=== PATIENT | female | born 1990 | race Caucasian/White ===

== ENCOUNTER 2018-08-28 07:37 | Day surgery (SDC) | payer MEDICAID ==
[~2018-08-28] VITALS: Ht 162.6 cm; Wt 104.6 kg
[2018-08-28] VITALS (11 sets, daily range): BP systolic 112–150; BP diastolic 70–106
[2018-08-28] MEDS ORDERED: LISI10TA4 PO (08:05)
[2018-08-28] MEDS ORDERED: METO-395 PO (08:05)
[2018-08-28] MEDS ORDERED: HYDR25TA4 PO (08:05)
[2018-08-28] MEDS ORDERED: ASPI81TA52 PO (08:05)
[2018-08-28] MEDS ORDERED: diphenhydrAMINE 25mg capsule PO PRN (08:10)
[2018-08-28] MEDS ORDERED: sod bicarbonate 150mEq in D5W 1,150 ML IV ONE (08:10)
[2018-08-28] MEDS ORDERED: normal saline 1000ml 1,000 ML IV SCH (08:10)
[2018-08-28 09:00] LABS: BASOPHILS % (AUTO) 0.3 % (0-1); EOSINOPHILS # (AUTO) 0.1 X10'3 (0-0.9); EOSINOPHILS % (AUTO) 1.3 % (0-6); HEMATOCRIT 43.4 % (35.0-45.0); LYMPHOCYTES # (AUTO) 2.1 X10'3 (1.1-4.8); LYMPHOCYTES % (AUTO) 33.7 % (21-51); MEAN CORPUSCULAR HEMOGLOBIN 27.5 PG (27.0-31.0); MEAN CORPUSCULAR HGB CONC 32.3 % (33.0-36.5); MEAN CORPUSCULAR VOLUME 85.4 FL (78-98); MEAN PLATELET VOLUME 9.2 FL (7.4-10.4); MONOCYTES # (AUTO) 0.4 X10'3 (0-0.9); MONOCYTES % (AUTO) 7.1 % (2-12); NEUTROPHILS # (AUTO) 3.6 X10'3 (1.8-7.7); NEUTROPHILS % (AUTO) 57.6 % (42-75); PLATELET COUNT 221 X10'3 (140-440); RED BLOOD COUNT 5.09 X10'6 (4.20-5.60); RED CELL DISTRIBUTION WIDTH 12.6 % (11.5-14.5); WHITE BLOOD COUNT 6.2 X10'3 (4.5-11.0)
[2018-08-28 09:09] LABS: ALBUMIN 4.2 G/DL (3.4-5.0); ANION GAP 10 (8-16); BLOOD UREA NITROGEN 18 MG/DL (7-18); BUN/CREATININE RATIO 22.5 (6.6-38.0); CALCIUM 9.3 MG/DL (8.5-10.1); CHLORIDE 99 MMOL/L (99-107); GLUCOSE 100 MG/DL (70-104); MAGNESIUM 1.9 MG/DL (1.5-2.4); POTASSIUM 3.3 MMOL/L (3.5-5.1); SODIUM 140 MMOL/L (135-145); TOTAL CARBON DIOXIDE 30.8 MMOL/L (24-32); eGFR 85 ML/MIN
[2018-08-28] MEDS ORDERED: LIDOcaine 1% (10mg/ml)w/preservative injection 20ml MDV ONE (09:16)
[2018-08-28] MEDS ORDERED: iohexol 350MG/ML 100ml bottle IV ONE (09:17)
[2018-08-28] MEDS ORDERED: nitroGLYCERIN-Tridil 50MG/D5W 250 ML IV ONE (09:17)
[2018-08-28] MEDS ORDERED: iohexol 350 MG/ML 50ML vial IV ONE (09:17)
[2018-08-28] MEDS ORDERED: verapamil 2.5 mg/ml inj IV ONE (09:18)
[2018-08-28] MEDS ORDERED: heparin 1,000unit/ml 10ml vial 10 ML ONE (09:18)
[2018-08-28] MEDS ORDERED: proCHLORperazine 10 MG/2 ml inj ONE (09:33)
[2018-08-28] MEDS ORDERED: midazolam 2 mg/2 ml injection ONE ×2 (09:34→09:46)
[2018-08-28] MEDS ORDERED: fentaNYL/PF 50MCG/1 ML 2ML syringe ONE ×2 (09:34→09:46)
== END 2018-08-28 14:40 | disposition home or self-care (01) ==
LOC: SSTAY O 07:37
PROVIDERS: ATTEND Internal Medicine Cardiovascular Disease
DX: I20.8 Other forms of angina pectoris (principal); Q24.5 Malformation of coronary vessels; I10 Essential (primary) hypertension; F41.8 Other specified anxiety disorders; G43.909 Migraine, unspecified, not intractable, without status migrainosus; E66.9 Obesity, unspecified; F17.210 Nicotine dependence, cigarettes, uncomplicated; Z68.39 Body mass index [BMI] 39.0-39.9, adult; Z87.2 Personal history of diseases of the skin and subcutaneous tissue; Z88.1 Allergy status to other antibiotic agents; Z79.82 Long term (current) use of aspirin; Z90.89 Acquired absence of other organs; Z79.899 Other long term (current) drug therapy; Z98.890 Other specified postprocedural states; Z82.3 Family history of stroke; Z82.49 Family history of ischemic heart disease and other diseases of the circulatory system; Z83.3 Family history of diabetes mellitus
CPT/HCPCS: 36415; 80048; 83735; 85025; 85610; 93005; 93458; 99152; 99153; C1760; J0780; J1644; J2001; J2250; J3010; J7030; Q0163; Q9967; A4620; C1769; C1894; J3490

== ENCOUNTER 2020-05-22 12:54 | Emergency (ER) | payer MEDICAID ==
[~2020-05-22] VITALS: Ht 162.6 cm; Wt 106.0 kg
[~2020-05-22 12:54] MED LIST: ASPI81TA52 PO; HYDR25TA4 PO; LISI10TA4 PO; METO-395 PO
[2020-05-22] MEDS ORDERED: cloNIDine 0.1 mg tablet PO ONE (13:55)
[2020-05-22 14:13] LABS: BASOPHILS # (AUTO) 0.1 X10'3 (0-0.2); BASOPHILS % (AUTO) 0.4 % (0-1); EOSINOPHILS % (AUTO) 0 % (0-6); HEMATOCRIT 40.7 % (35.0-45.0); HEMOGLOBIN 13.3 g/dl (12.0-16.0); LYMPHOCYTES # (AUTO) 1.8 X10'3 (1.1-4.8); LYMPHOCYTES % (AUTO) 13.6 % (21-51); MEAN CORPUSCULAR HEMOGLOBIN 26.4 PG (27.0-31.0); MEAN CORPUSCULAR HGB CONC 32.6 g/dL (33.0-36.5); MEAN CORPUSCULAR VOLUME 81.1 FL (78-98); MEAN PLATELET VOLUME 8.1 FL (7.4-10.4); MONOCYTES # (AUTO) 0.6 X10'3 (0-0.9); MONOCYTES % (AUTO) 4.1 % (2-12); NEUTROPHILS # (AUTO) 11.1 X10'3 (1.8-7.7); NEUTROPHILS % (AUTO) 81.9 % (42-75); PLATELET COUNT 253 X10'3 (140-440); RED BLOOD COUNT 5.02 X10'6 (4.20-5.60); RED CELL DISTRIBUTION WIDTH 14.5 % (11.5-14.5); WHITE BLOOD COUNT 13.5 X10'3 (4.5-11.0)
[2020-05-22 14:27] LABS: ALANINE AMINOTRANSFERASE 72 U/L (12-78); ALBUMIN 3.9 G/DL (3.4-5.0); ALBUMIN/GLOBULIN RATIO 1.1 (1.1-1.5); ALKALINE PHOSPHATASE 91 IU/L (46-116); ANION GAP 11 (8-16); ASPARTATE AMINO TRANSFERASE 22 U/L (10-37); BILIRUBIN,TOTAL 0.3 MG/DL (0.1-1.0); BLOOD UREA NITROGEN 16 MG/DL (7-18); CALCIUM 9.6 MG/DL (8.5-10.1); CHLORIDE 105 MMOL/L (99-107); CREATININE 0.89 MG/DL (0.40-0.90); GLUCOSE 130 MG/DL (70-104); POTASSIUM 3.9 MMOL/L (3.5-5.1); SODIUM 141 MMOL/L (135-145); TOTAL CARBON DIOXIDE 25.5 MMOL/L (24-32); TOTAL PROTEIN 7.6 G/DL (6.4-8.2); eGFR 74 ML/MIN
[2020-05-22] MEDS ORDERED: LORazepam 2 mg/ml vial IV ONE (15:00)
[2020-05-22] MEDS ORDERED: ketorolac tromethamine 15mg/ml inj. IV ONE (15:00)
[2020-05-22] MEDS ORDERED: metoclopramide 5 mg/ml inj IV ONE (15:00)
[2020-05-22] MEDS ORDERED: normal saline 1000ML IV soln IVB ONE (15:00)
[2020-05-22 16:02] VITALS: BP 181/101
== END 2020-05-22 16:06 | disposition home or self-care (01) ==
LOC: ER 12:54
DX: I10 Essential (primary) hypertension (principal); G43.909 Migraine, unspecified, not intractable, without status migrainosus; Z88.1 Allergy status to other antibiotic agents; Z79.82 Long term (current) use of aspirin; Z79.899 Other long term (current) drug therapy
CPT/HCPCS: 36415; 70450; 71045; 80053; 83880; 84484; 85025; 93005; 96361; 96374; 96375; 99285; J1885; J2060; J2765; J7030

== ENCOUNTER 2023-04-26 19:09 | Emergency (ER) | payer MEDICAID ==
[~2023-04-26] VITALS: Ht 162.6 cm; Wt 100.0 kg
[~2023-04-26 19:09] MED LIST changes: +LISI10TA27 PO; -LISI10TA4 PO
[2023-04-26 19:21] VITALS: BP 185/108; PULSE 95; RESP 17; TEMP 98.3; O2SAT 98
[2023-04-26 19:42] LABS: BILIRUBIN,URINE NEGATIVE (Neg); CLARITY,URINE SLIGHTLY CLOUDY (Clear); COLOR,URINE YELLOW (Yellow); GLUCOSE, URINE NEGATIVE (Neg); KETONES,URINE NEGATIVE (Neg); LEUKOCYTE ESTERASE ,URINE NEGATIVE (Neg); NITRITES, URINE NEGATIVE (Neg); OCCULT BLOOD,URINE NEGATIVE (Neg); PROTEIN,URINE NEGATIVE (Neg); UROBILINOGEN,URINE 0.2 E.U/dL (0.2-1.0)
--- NOTE | 2023-04-26 19:42 | NUR ---
PT PRESENTS TO THE ER FOR CONCERNS OF STD. PT STATES SHE WENT TO ER IN [place] THINKING SHE HAD A YEAST INFECTION. PT DENIES BURNING WITH URNIATIO. PT STATES THE ER IN [place] DID NOT RUN A STD CHECK ON URINE. PT STATES HER URINE WAS CLEAN FOR UTI. PT REPORTS HAVING NEW PARTNERS.
[2023-04-26 19:45] LABS: URINE HCG NEGATIVE (NEG)
[2023-04-26 19:54] LABS: UA COLLECTION TYPE CLN CATCH MIDSTREAM
[2023-04-26 19:58] LABS: SQUAMOUS EPITHELIAL CELL,UR MANY /LPF (FEW); WBC,URINE 0-4 /HPF (0-4)
[2023-04-26 19:59] LABS: BACTERIA,URINE 1+ /HPF (Neg); MUCUS STRANDS MANY /LPF (Neg); RBC,URINE 0-2 /HPF (0-2)
[2023-04-26] MEDS ORDERED: FLUC150T PO (21:05)
== END 2023-04-26 21:20 | disposition home or self-care (01) ==
LOC: ER 19:10
DX: N89.8 Other specified noninflammatory disorders of vagina (principal); L29.2 Pruritus vulvae; G43.909 Migraine, unspecified, not intractable, without status migrainosus; F17.200 Nicotine dependence, unspecified, uncomplicated; Z88.1 Allergy status to other antibiotic agents; Z79.82 Long term (current) use of aspirin; Z79.899 Other long term (current) drug therapy
CPT/HCPCS: 36415; 81001; 81025; 87491; 99283

== ENCOUNTER 2025-01-07 23:53 | Emergency (ER) | payer MEDICAID ==
[~2025-01-07] VITALS: Ht 162.6 cm; Wt 102.2 kg
[2025-01-08 01:05] LABS: BASOPHILS % (AUTO) 0.2 % (0-1); EOSINOPHILS # (AUTO) 0.1 X10'3 (0-0.9); HEMATOCRIT 33.6 % (35.0-45.0); HEMOGLOBIN 10.5 g/dl (12.0-16.0); LYMPHOCYTES # (AUTO) 1.5 X10'3 (1.1-4.8); LYMPHOCYTES % (AUTO) 21.8 % (21-51); MEAN CORPUSCULAR HEMOGLOBIN 21.6 PG (27.0-31.0); MEAN CORPUSCULAR HGB CONC 31.1 g/dL (33.0-36.5); MEAN CORPUSCULAR VOLUME 69.5 FL (78-98); MEAN PLATELET VOLUME 7.6 FL (7.4-10.4); MONOCYTES # (AUTO) 0.5 X10'3 (0-0.9); MONOCYTES % (AUTO) 7.7 % (2-12); NEUTROPHILS # (AUTO) 4.9 X10'3 (1.8-7.7); NEUTROPHILS % (AUTO) 69.3 % (42-75); PLATELET COUNT 246 X10'3 (140-440); RED BLOOD COUNT 4.84 X10'6 (4.20-5.60); RED CELL DISTRIBUTION WIDTH 18.6 % (11.5-14.5)
[2025-01-08 01:21] LABS: ALANINE AMINOTRANSFERASE 25 U/L (12-78); ALBUMIN 3.6 G/DL (3.4-5.0); ALBUMIN/GLOBULIN RATIO 1.1 (1.1-1.5); ALKALINE PHOSPHATASE 87 IU/L (46-116); ANION GAP 8 (8-16); ASPARTATE AMINO TRANSFERASE 12 U/L (10-37); BILIRUBIN,TOTAL 0.3 MG/DL (0.1-1.0); BLOOD UREA NITROGEN 13 MG/DL (7-18); BUN/CREATININE RATIO 15.7 (10.0-20.0); CALCIUM 8.7 MG/DL (8.5-10.1); CHLORIDE 106 MMOL/L (99-107); CREATININE 0.83 MG/DL (0.40-0.90); GLUCOSE 98 MG/DL (70-104); LIPASE 27 U/L (16-77); POTASSIUM 3.8 MMOL/L (3.5-5.1); SODIUM 140 MMOL/L (135-145); TOTAL CARBON DIOXIDE 25.8 MMOL/L (24-32); TOTAL PROTEIN 6.8 G/DL (6.4-8.2); eCRCL 82 ML/MIN; eGFR 78 ML/MIN
[2025-01-08 02:33] LABS: ANISOCYTOSIS 2+; MICROCYTOSIS 2+; PLATELET ESTIMATE NORMAL
[2025-01-08 03:35] LABS: BILIRUBIN,URINE NEGATIVE (Neg); CLARITY,URINE CLEAR (Clear); COLOR,URINE YELLOW (Yellow); GLUCOSE, URINE NEGATIVE (Neg); KETONES,URINE NEGATIVE (Neg); LEUKOCYTE ESTERASE ,URINE NEGATIVE (Neg); NITRITES, URINE NEGATIVE (Neg); OCCULT BLOOD,URINE TRACE-INTACT (Neg); PROTEIN,URINE TRACE mg/dl (Neg); UROBILINOGEN,URINE 0.2 E.U/dL (0.2-1.0)
[2025-01-08 03:37] VITALS: BP 127/57; PULSE 98; RESP 16; TEMP 98.4; O2SAT 98
[2025-01-08 03:37] LABS: UA COLLECTION TYPE CLN CATCH MIDSTREAM; URINE HCG NEGATIVE (NEG)
[2025-01-08 03:41] LABS: BACTERIA,URINE 1+ /HPF (Neg); MUCUS STRANDS FEW /LPF (Neg); RBC,URINE NONE SEEN /HPF (0-2); SQUAMOUS EPITHELIAL CELL,UR FEW /LPF (FEW); WBC,URINE 20-30 /HPF (0-4)
--- NOTE | 2025-01-09 19:33 | Physician Documentation ---
History of Present Illness ~ Chief Complaint: Abdominal Pain Stated Complaint: BACK/ ABD PAIN Time Seen by MD: 00:36 Primary Medical Doctor: None Mode of Arrival: POV HPI Lower back pain for several days as well abdominal cramping. Patient started several new medications. Also reports that she saw blood on the toilet paper when wiping. She hasn't been vomiting and denies diarrhea and urinary symptoms. Just started her menstrual period. Last Menstrual Period: January 06, 2025 Medication Reconciliation Allergies: Coded Allergies: cephalexin (Unverified Allergy, Severe, THROAT SWELLING, 04/26/23) Scheduled Aspirin (Aspirin EC), 1 TABLET PO DAILY, (Reported) Hydrochlorothiazide (Hydrochlorothiazide), 1 TAB PO DAILY, (Reported) Lisinopril (Lisinopril), 1 TAB PO DAILY, (Reported) Metoprolol Succinate (Metoprolol Succinate), 1 TAB PO DAILY, (Reported) Past Medical History Past Medical History: Migraine Past Surgical History: no surgical history Last Menstrual Period: January 06, 2025 Patient History: FH: diabetes mellitus FATHER FH: heart disease FATHER Smoking Status: Current every day smoker Alcohol Use: None Drug Use: none Lives In: Home Review of Systems All Other Systems at this time: Reviewed and Negative Physical Exam Vital Signs: RN Vital Signs have been reviewed: Yes, Temperature: 98.4, Source: Oral, Heart Rate: 98, Respiratory Rate: 16, BP: 127/57, Pulse Oximetry: 98, Weight: 102.200 Oxygen Flow Rate: 0 Physical Exam HEENT: PERRL, moist oral mucosa, EOMI Pulmonary: No respiratory distress Cardiac: RRR, no murmur, rub or gallop GI: nondistended, soft, nontender, no guarding, no rebound MSK: no deformity Skin: w/d/i, no rash Neuro: alert, nonfocal Psych: normal affect Progress Results/Orders Results/Orders Orders - PIERRE GUERRERO MD Cult Urine + Reading Ct (01/08/25 03:41) Completed Orders - PIERRE GUERRERO MD Hcg, Ur Ql (01/08/25 00:05) Cbc/Diff (01/08/25 00:05) Lipase (01/08/25 00:05) CMP (01/08/25 00:05) Ua W/Microscopic, Cult If Ind (01/08/25 03:25) Vital Signs 01/08/25 01/08/25 01/08/25 01/08/25 00:00 00:31 02:02 03:37 Temp 98.1 98.4 Pulse 97 88 98 Resp 16 16 16 16 B/P (MAP) 198/122 166/92 (116) 127/57 Pulse Ox 100 98 98 O2 Flow Rate 0 0 Laboratory Tests Test 01/08/25 00:56 01/08/25 03:25 White Blood Count 7.0 Red Blood Count 4.84 Hemoglobin 10.5 L Hematocrit 33.6 L Mean Corpuscular Volume 69.5 L Mean Corpuscular Hemoglobin 21.6 L Mean Corpuscular Hemoglobin Concent 31.1 L Red Cell Distribution Width 18.6 H Platelet Count 246 Mean Platelet Volume 7.6 Neutrophils (%) (Auto) 69.3 Lymphocytes (%) (Auto) 21.8 Monocytes (%) (Auto) 7.7 Eosinophils (%) (Auto) 1.0 Basophils (%) (Auto) 0.2 Neutrophils # (Auto) 4.9 Lymphocytes # (Auto) 1.5 Monocytes # (Auto) 0.5 Eosinophils # (Auto) 0.1 Basophils # (Auto) 0.0 CBC Comment Platelet Estimate Normal Red Blood Cell Morphology Perf Basophilic Stippling Anisocytosis 2+ Microcytosis 2+ Sodium Level 140 Potassium Level 3.8 Chloride Level 106 Carbon Dioxide Level 25.8 Anion Gap 8 Blood Urea Nitrogen 13 Creatinine 0.83 Estimated GFR/1.73 m2 78 BUN/Creatinine Ratio 15.7 Glucose Level 98 Calcium Level 8.7 Total Bilirubin 0.3 Aspartate Amino Transf (AST/SGOT) 12 Alanine Aminotransferase (ALT/SGPT) 25 Alkaline Phosphatase 87 Total Protein 6.8 Albumin 3.6 Globulin 3.2 Albumin/Globulin Ratio 1.1 Lipase 27 Chemistry Comments Urine Specimen Description Cln catch midstream Urine Color Yellow Urine Clarity Clear Urine pH 6.0 Urine Specific [place] 1.025 Urine Protein Trace Urine Glucose (UA) Negative Urine Ketones Negative Urine Occult Blood Trace-intact Urine Nitrite Negative Urine Bilirubin Negative Urine Urobilinogen 0.2 Urine Leukocyte Esterase Negative Urine RBC None seen Urine WBC 20-30 H Urine Squamous Epithelial Cells Few Urine Bacteria 1+ Urine Mucus Few Urine Culture Indicated Indicated Volume Urine Centrifuged 10 ml Urine HCG, Qualitative Negative Urine Comment Microbiology Date/Time Source Procedure Growth Status 01/08/25 03:41 Urine Clean Catch Midstream Urine Culture - Preliminary Gram Negative Nam Resulted Medical Decision Making Findings 34 year old female as above. Exam and vitals were nonspecific, workup was largely unremarkable. Counseled reassured discharged with return precautions. Additional Comments Ddx = uti, pyelonephritis, , ectopic , electrolyte disturbance, gastroenteritis, appendicitis, gallbladder pathology Departure Disposition: HOME / SELF CARE / HOMELESS Impression: Primary Impression: Abdominal pain Condition: Stable Discharge Instructions: Abdominal Pain (Nonspecific) Referrals: [facility] Education Educated: Patient Educated regarding: diagnosis, treatment, prognosis, need for follow up Signature Scribe Signature: . Attestation: . PIERRE GUERRERO MD January 09, 2025 19:33
== END 2025-01-08 03:45 | disposition home or self-care (01) ==
LOC: ER 23:53
DX: R10.84 Generalized abdominal pain (principal); F17.200 Nicotine dependence, unspecified, uncomplicated; G43.909 Migraine, unspecified, not intractable, without status migrainosus; Z88.1 Allergy status to other antibiotic agents; Z79.899 Other long term (current) drug therapy
CPT/HCPCS: 36415; 80053; 81001; 81025; 83690; 85008; 85025; 87088; 99283

== ENCOUNTER 2025-01-10 09:49 | Emergency (ER) | payer MEDICAID ==
[~2025-01-10] VITALS: Ht 162.6 cm; Wt 100.3 kg
[2025-01-10 09:57] VITALS: TEMP 97.8
[2025-01-10] MEDS ORDERED: SULF1TAB49 PO (10:09)
--- NOTE | 2025-01-10 10:12 | Physician Documentation ---
History of Present Illness Chief Complaint: Flank Pain Stated Complaint: BACK/ABD PAIN Time Seen by MD: 10:03 Primary Medical Doctor: None Mode of Arrival: POV HPI This is a 34-year-old female who comes in for evaluation of progressive worse tonny left-sided flank pain that has been present for several days. She has been here several days ago, was tested, discharged without any medication because the lost my urine. She received a call back in the next day indicated that she does have a UTI, however no antibiotics were prescribed. She was advised to follow-up with the PCP or ER if the symptoms get worse. Her symptoms do progressively get worse. She reports left-sided flank pain radiating her left lower for in the abdomen. The particular palliating factors. Denies dysuria frequency as that have resolved. Denies any fever, chills, nausea, vomiting, chest pain or difficulty breathing. Also concerned that she might have a STDs and would like to get tested. Denies, illicit substances use Medication Reconciliation Allergies: Coded Allergies: cephalexin (Unverified Allergy, Severe, THROAT SWELLING, 01/10/25) Scheduled Aspirin (Aspirin EC), 1 TABLET PO DAILY, (Reported) Hydrochlorothiazide (Hydrochlorothiazide), 1 TAB PO DAILY, (Reported) Lisinopril (Lisinopril), 1 TAB PO DAILY, (Reported) Metoprolol Succinate (Metoprolol Succinate), 1 TAB PO DAILY, (Reported) Sulfamethoxazole/Trimethoprim (Bactrim Ds Tablet), 1 TAB PO Q12H Past Medical History Past Medical History: Migraine Past Surgical History: no surgical history Patient History: FH: diabetes mellitus FATHER FH: heart disease FATHER Alcohol Use: None Drug Use: none Lives In: Home Review of Systems ROS 10 point review of systems was performed and unless noted above in HPI is negative for acute process/complaint. Physical Exam Vital Signs: Temperature: 97.8, Source: Temporal, Heart Rate: 97, Respiratory Rate: 18, BP: 223/136, Pulse Oximetry: 100, Weight: 100.300 Progress Results/Orders Results/Orders Orders - TAMMIE MURILLO DO Chlam/Gc Amp Ur (01/10/25 10:03) Cbc/Diff (01/10/25 10:03) C-Reactive Protein (01/10/25 10:03) Urinalysis, Cult If Indicated (01/10/25 10:03) CMP (01/10/25 10:03) Ceftriaxone/Z3t-Lprefyzz 1gm (Rocephin 1 (01/10/25 10:03) Azithromycin Tablet (Zithromax Tablet) (01/10/25 10:05) Vital Signs 01/10/25 01/10/25 09:57 10:06 Temp 97.8 Pulse 97 Resp 18 18 B/P (MAP) 223/136 Pulse Ox 100 Medical Decision Making Findings Facility Status: ED Holds, [facility] process The plan was discussed with the patient, who demonstrates clear understanding of the plan and is in agreement with the plan unless otherwise noted in the chart. All questions have been answered, all concerns were addressed unless otherwise documented. I was available throughout their ED stay for frequent reassessment and questions. Differential Diagnoses (considered and possible or likely): [Urinary tract infection, pyelitis, pyelonephritis, less likely acute intra-abdominal processes such as Differential diagnosis considered includes acute appendicitis, acute cholecystitis, pancreatitis, gastritis, PUD, diverticulitis, mesenteric ischemia, abdominal aortic aneurysm, bowel obstruction, enteritis, colitis, fe vilma impaction, volvulus, IBS, inflammatory bowel disease, specific food intolerance, peritonitis, perforated viscous, malignancy, UTI, abscess, and abdominal pain NOS. Pelvic source of pain was also considered including endometritis, dysmenorrhea, ovarian cyst, ovarian torsion, PID, TOA, cervicitis, vaginitis, or uterine fibroid. History, physical exam, and workup exclude many of the more serious causes listed above. ] ??Differential Diagnoses (considered and unlikely, not requiring evaluation currently): [See above] MDM Data Please see [facility] for the following: Independent Historians and external Records Review. Historian: [Patient] Independent Historians: ?[Record review] Medication Management: [Reviewed medication list] Social History and determinants: [Reviewed] Please see the body of the note for the following: Any independent interpretations of ECG, imaging studies. All vitals signs/haemodynamics, ordered tests were independently reviewed and interpreted by myself. Nursing triage complaint and vitals reviewed, additional nursing notes were reviewed as available and I agree unless otherwise noted or documented in contradiction in the chart Vital Signs: Independently reviewed Labs: Independently interpreted Imaging: Independently interpreted Old Medical Records: Independently reviewed, see HPI for relevant summary and information Pulse Oximetry: [100%] interpreted as [normal on room air] by me [Manager Plan: [Regular Rate, Regular rhythm, no ectopy, NSR] reviewed and interpreted by me] Additionally notably showing: [Hemodynamically stable. Benign laboratory workup except for some hematuria and bacteria and white blood cells in urine consistent with UTI. Clinically she does not appear to have a kidney stone as this is not a colicky pain, not waxing and waning, has a history of kidney stones, given duration of symptoms] Tests considered but not ordered include: [CT abdomen and pelvis has been considerably but I do not think this is acute intra-abdominal process, this is more consistent with a pyelonephritis, unlikely to represent infected kidney stone.] Social Determinants of Health Impact: Patient was evaluated in [facility], [facility] [place] to healthcare due to below par ratio of patient to medical providers. [] Comorbid Conditions Impacting Present Evaluation and Care/Treatment: [History of UTI as] Management Discussions with other Healthcare Providers: [] Treatment and Disposition Medication Management (Given or considered): Antibiotics as treatment for the U TI and concurrent treatment for STDs. See EMR for details Consideration for Hospitalization/Escalation/Deescalation of Care: Admission for observation has been considered, [however the patient is able to tolerate p.o., their symptoms are controlled, they are able to rely on oral medications, and their chief complaint/diagnosis can be managed on outpatient basis.] ?ED Course:?[No clinical deterioration.] ?Shared decision making:?[Patient is hemodynamically stable for discharge home with follow with their primary care provider. [ ] Specific and cautious return precautions provided and discussed with full understanding. Any incidental findings were also discussed and follow up recommendations given. [] All questions answered. Patient/family were able to verbalize back return precautions. Patient/family agree to plan. Copies of imaging and laboratory studies were provided.] Code status:?FULL Please see the full Electronic Medical Record for full details of nursing documentation, medications list, other records of complete past medical history and conditions, vital signs, laboratory studies, and any radiologic study interpretations by radiologists. Portions of this note were completed using [employer] dictation software and as a result there may exist minor errors in spelling. I have reviewed elements of past family and social history and agree as included in note. Departure Disposition: HOME / SELF CARE / HOMELESS Impression: Primary Impression: Acute pyelonephritis Additional Impression: STD exposure Condition: Improved Discharge Instructions: Pyelonephritis, Adult Referrals: NO PRIMARY CARE PROVIDER (PCP) Prescriptions Sulfamethoxazole/Trimethoprim (Bactrim Ds Tablet) 800 Mg-160 Mg Tablet 1 TAB PO Q12H for 7 Days, #14 TAB Prov: TAMMIE MURILLO DO 01/10/25 Education Educated: Patient Educated regarding: diagnosis, treatment, prognosis, need for follow up Signature Scribe Signature: No scribe Attestation: This note accurately reflects clinical decisions, work performed by myself, DO LIDIA Rojas NICHOLAS M DO January 10, 2025 10:12
[2025-01-10 10:34] LABS: BASOPHILS % (AUTO) 0.5 % (0-1); EOSINOPHILS # (AUTO) 0.1 X10'3 (0-0.9); LYMPHOCYTES # (AUTO) 1.3 X10'3 (1.1-4.8); LYMPHOCYTES % (AUTO) 18.9 % (21-51); MEAN PLATELET VOLUME 7.6 FL (7.4-10.4); MONOCYTES # (AUTO) 0.4 X10'3 (0-0.9); MONOCYTES % (AUTO) 5.3 % (2-12); NEUTROPHILS # (AUTO) 5.2 X10'3 (1.8-7.7); NEUTROPHILS % (AUTO) 74.3 % (42-75); PLATELET COUNT 262 X10'3 (140-440); WHITE BLOOD COUNT 7.1 X10'3 (4.5-11.0)
[2025-01-10] MEDS: CefTRIAXone/D5W-Rocephin 1gm 50 ML IV STA (10:37)
[2025-01-10] MEDS: azithromycin 250mg tablet PO ONE (10:37)
[2025-01-10 10:46] LABS: ALANINE AMINOTRANSFERASE 29 U/L (12-78); ALBUMIN 3.6 G/DL (3.4-5.0); ALBUMIN/GLOBULIN RATIO 1.1 (1.1-1.5); ALKALINE PHOSPHATASE 95 IU/L (46-116); ANION GAP 7 (8-16); ASPARTATE AMINO TRANSFERASE 13 U/L (10-37); BILIRUBIN,TOTAL 0.3 MG/DL (0.1-1.0); BLOOD UREA NITROGEN 10 MG/DL (7-18); BUN/CREATININE RATIO 15.2 (10.0-20.0); C-REACTIVE PROTEIN 1.02 MG/DL (0.0-0.5); CHLORIDE 106 MMOL/L (99-107); CREATININE 0.66 MG/DL (0.40-0.90); GLUCOSE 94 MG/DL (70-104); SODIUM 141 MMOL/L (135-145); TOTAL CARBON DIOXIDE 28.4 MMOL/L (24-32); eCRCL 103 ML/MIN; eGFR > 90 ML/MIN
[2025-01-10 10:55] LABS: HEMATOCRIT 34.9 % (35.0-45.0); HEMOGLOBIN 11.4 g/dl (12.0-16.0); MEAN CORPUSCULAR VOLUME 68.2 FL (78-98); RED BLOOD COUNT 5.12 X10'6 (4.20-5.60)
[2025-01-10 10:56] LABS: MEAN CORPUSCULAR HEMOGLOBIN 22.2 PG (27.0-31.0); MEAN CORPUSCULAR HGB CONC 32.5 g/dL (33.0-36.5); RED CELL DISTRIBUTION WIDTH 17.7 % (11.5-14.5)
[2025-01-10 12:00] LABS: BILIRUBIN,URINE NEGATIVE (Neg); CLARITY,URINE CLOUDY (Clear); COLOR,URINE YELLOW (Yellow); GLUCOSE, URINE NEGATIVE (Neg); KETONES,URINE NEGATIVE (Neg); LEUKOCYTE ESTERASE ,URINE MODERATE (Neg); NITRITES, URINE POSITIVE (Neg); OCCULT BLOOD,URINE SMALL (Neg); PROTEIN,URINE 100 mg/dl (Neg); UROBILINOGEN,URINE 0.2 E.U/dL (0.2-1.0)
[2025-01-10 12:02] LABS: UA COLLECTION TYPE CLN CATCH MIDSTREAM
[2025-01-10 12:08] LABS: BACTERIA,URINE 4+ /HPF (Neg); MUCUS STRANDS FEW /LPF (Neg); RENAL CELLS, URINE FEW /HPF; SQUAMOUS EPITHELIAL CELL,UR FEW /LPF (FEW); TRANSITIONAL EPI CELLS,URINE FEW /HPF; WBC,URINE 50-100 /HPF (0-4)
[2025-01-10 12:25] VITALS: BP 178/123; PULSE 96; RESP 18; O2SAT 98
[2025-01-12 05:13] LABS: CHLAMYDIA TRACHOMATIS, NAA Negative (Negative)
== END 2025-01-10 12:35 | disposition home or self-care (01) ==
LOC: ER 09:50
DX: N10 Acute pyelonephritis (principal); Z20.2 Contact with and (suspected) exposure to infections with a predominantly sexual mode of transmission; G43.909 Migraine, unspecified, not intractable, without status migrainosus; Z79.899 Other long term (current) drug therapy; Z79.82 Long term (current) use of aspirin; Z88.1 Allergy status to other antibiotic agents
CPT/HCPCS: 36415; 80053; 81001; 85025; 86140; 87077; 87088; 87186; 87491; 87591; 96365; 99284; J0696

== ENCOUNTER 2025-07-29 14:30 | Emergency (ER) | payer MEDICAID ==
[~2025-07-29] VITALS: Ht 165.1 cm; Wt 105.0 kg
[2025-07-29 14:47] VITALS: PULSE 110; RESP 15; TEMP 97.6; O2SAT 98
[2025-07-29 15:44] LABS: URINE HCG NEGATIVE (NEG)
[2025-07-29 15:49] LABS: LEUKOCYTE ESTERASE ,URINE SMALL (Neg); NITRITES, URINE NEGATIVE (Neg); OCCULT BLOOD,URINE NEGATIVE (Neg)
[2025-07-29 15:51] LABS: UA COLLECTION TYPE CLN CATCH MIDSTREAM
[2025-07-29 15:58] LABS: MUCUS STRANDS FEW /LPF (Neg); SQUAMOUS EPITHELIAL CELL,UR MODERATE /LPF (FEW)
== END 2025-07-29 17:42 | disposition left against medical advice (07) ==
LOC: ER 14:30
DX: R10.31 Right lower quadrant pain (principal)
CPT/HCPCS: 81001; 81025; 87088; 99281; 99282; 99283